=== PATIENT | female | born 1965 | race Caucasian/White ===

== ENCOUNTER 2021-08-01 12:35 | Day surgery (SDC) | payer MEDICAID, SELFPAY ==
--- NOTE | 2021-08-01 08:13 | W.PM.DSUDISC ---
Discharge Plan Disposition Patient Disposition: HOME Condition: Stable Discharge Details Reason For Visit: Trigger Finger Release Attending Provider: Ernst Gonzalez Primary Care Provider: Rachell Balderas Home Meds and New Rx's Prescriptions: New ibuprofen 600 mg tablet 600 mg PO TID Qty: 30 0RF acetaminophen 500 mg capsule 1,000 mg PO Q8H PRN PRNQty: 30 0RF Continued milk thistle 150 mg capsule 150 mg PO DAILY Rx Instructions: give with meal/snack fluoxetine [Prozac] 40 mg capsule 40 mg PO DAILY Qty: 90 3RF methylphenidate HCl 5 mg tablet 5 mg PO QAM MDD 5mg Qty: 28 0RF lisinopril 20 mg tablet 20 mg PO DAILY Qty: 90 3RF hydrochlorothiazide 25 mg tablet 25 mg PO DAILY Qty: 90 3RF vitamin B complex Capsule 1 cap PO DAILY Discharge Instructions Stand Alone Forms: Carlos Swanson Finger Release Referrals: Ernst Gonzalez MD [ [facility] STAFF PHYSICIAN] - Activity:: Activity as Tolerated Remove Dressings/Wound Care:: 72 hours Shower/Bathe:: 72 hours Diet:: As Tolerated Discharge Orders Discharge Orders: Discharge Order (Routine); Ordered 08/01/21 Ordered By: Iris Carolina DS: Diagnosis Discharge Diagnosis (1) Trigger finger, right ring finger: Status: Acute (2) Trigger finger, right middle finger: Status: Acute
[2021-08-01 13:05] VITALS: BP 126/82; PULSE 79; RESP 16; TEMP 36.5; O2SAT 97
[2021-08-01] MEDS: Lidocaine 1% Multi-Dose W/EPI 1/100,000 50 ML VIAL (13:40)
[2021-08-01] MEDS: Sodium Bicarbonate 50 MEQ/50 ML VIAL (13:40)
[2021-08-01 14:01] VITALS: BP 137/77; PULSE 61; RESP 16; TEMP 36.1; O2SAT 97
--- NOTE | 2021-08-01 14:11 | ROE_ITS ---
Date of service: 08/01/21 Time of Service: 13:50 Operative Note Operative Note DATE OF PROCEDURE: 08/01/21 PRE-OP DIAGNOSIS: Right Ring and Middle Finger Trigger Fingers POST-OP DIAGNOSIS: same PROCEDURE: Trigger Finger Release - Right Middle and Ring Fingers SURGEON: Ernst Gonzalez Refer to Anesthesia Record ESTIMATED BLOOD LOSS: 0 PATHOLOGY: none sent COMPLICATIONS: None Patient was transported to: same day Patient's condition: stable Indications: I have seen Kelsie in clinic for symptoms of a trigger finger. The catching, clicking, locking, and pain limited function. The diagnosis of trigger finger was evident of the right middle and ring fingers. The symptoms had not responded to conservative measures. I discussed trigger finger release with the patient. I reviewed the risks of the procedure to include, but not limited to, bleeding, infection, pain, stiffness, incomplete release, damage to nerves or vessels, continued catching, recurrence. Despite these risks, the patient elected to proceed. Findings: There was a tightened A1 camille which was released. The flexor tendons were inspected and the patient was able to move the finger without any catching, clicking, or locking. Procedure Description: Kelsie was greeted in the preoperative holding area where the correct side was identified and marked. The consent was reviewed with the patient and signed. All questions were answered. She was taken back to the operating room. The patient was placed into the supine position on the operating room table with the right arm on an arm board. All bony prominences were well padded. No prophylactic antibiotics were administered since this was a clean, elective hand surgical case. The right arm was then prepped with Chloraprep and draped in a standard fashion with stockinette and extremity drape. A timeout to confirm correct identity, side and site, procedure, allergies, anesthesia, and medical concerns was performed. The surgical site was marked as a longitudinal incision directly over the A1 camille of the middle finger and ring finger. This was confirmed with palpation during finger flexion. This area, overlying the metacarpal head, was then anesthetized with 1% Lidocaine with Epinephrine and buffered with Sodium Bicarbonate. This was repeated for each finger. The patient tolerated this well and once the anesthetic had setup, the procedure began. Starting with the ring finger, a longitudinal incision was made through skin only, approximately 1cm. The deep tissues were dissected bluntly. Once the A1 camille and flexor tendons were identified the soft tissue including neurovascular structures were retracted medially and laterally. There were no crossing structures over the A1 camille. The proximal edge of the camille was identified and the camille was incised with tenotomy scissors. There was a release of the tendons once this was fully released. The tendons were then removed from the wound and inspected. The tendons were then returned and the patient was asked to move the finger into deep flexion and back to extension. There was no recreation of the pre- operative symptoms. The hand was then once more inspected for any A0 camille or area of possible constriction. The wound was then irrigated and the skin was closed with a 4-0 Nylon. Attention was then turned to the middle finger. A longitudinal incision was made through skin only, approximately 1cm. The deep tissues were dissected bluntly. Once the A1 camille and flexor tendons were identified the soft tissue including neurovascular structures were retracted medially and laterally. There were no crossing structures over the A1 camille. The proximal edge of the camille was identified and the camille was incised with tenotomy scissors. There was a release of the tendons once this was fully released. The tendons were then removed from the wound and inspected. Excess synovium was resected. The tendons were then returned and the patient was asked to move the finger into deep flexion and back to extension. There was no recreation of the pre- operative symptoms. The hand was then once more inspected for any A0 camille or area of possible constriction. The wound was then irrigated and the skin was closed with a 4-0 Nylon. These wounds were dressed with gauze and a Conform dressing. She tolerated the procedure well and was returned to the Same Day Surgery area in a stable condition suffering no known complication.
== END 2021-08-01 14:17 | disposition home or self-care (01) ==
PROVIDERS: PCP Nurse Practitioner Family; Visit Provider Student in an Organized Health Care Education/Training Program
PROC: (CPT 26055; principal; 2021-08-01 15:45)
DX: M65.341 Trigger finger, right ring finger (principal); M65.331 Trigger finger, right middle finger
CPT/HCPCS: 26055 ×2

== ENCOUNTER → 2021-08-30 02:16 | Outpatient (CLI) | payer MEDICAID, SELFPAY | PROVIDERS: PCP Nurse Practitioner Family; Visit Provider Nurse Practitioner Family ==

== ENCOUNTER → 2021-11-10 00:49 | Outpatient (CLI) | payer MEDICAID, SELFPAY ==
--- NOTE | 2021-11-10 06:30 | DI.MAMMO_ITS ---
Exam(s) MAMMO SCREENING EXAM: MAMMO SCREENING CLINICAL HISTORY: screening,z12.39. TECHNIQUE: Bilateral full field digital CC and MLO mammographic images were obtained with 3D tomosyn thesis and utilizing computer aided detection (CAD). COMPARISON: None. FINDINGS: There are no significant radiograph findings in right breast. In the left breast there is asymmetric density located 7 cm in from the nipple on the CC view, as wel l as similar distance from the nipple on the MLO view. There are no malignant-appearing microcalcification groups in this region or elsewhere in either [address]. There is no significant architectural distortion nor skin thickening-retraction. IMPRESSION: 1. No radiographic evidence of malignancy in the right breast. 2. Asymmetric density-nodular density in the left breast as described above. Spot compression views and ultrasound recommended. BI-RADS Category 0 - Assessment Incomplete: Need additional imaging evaluation Breast Density - Category B - Scattered areas of fibroglandular density Breast density Category C or D implies that the patient has dense breast tissue. Dense breast tissue can make it harder to find cancer on a mammogram. Dense breast tissue is also associated with an incr eased risk of breast cancer. This information about the result of the mammogram report was provided to the patient to raise their awareness. Use this report when you speak with the patient about their risks for breast cancer, which includes their family history. At that time, you may recommend additional screening tests (Ultrasoun d or MRI) as these tests may add significant information. A negative radiographic report should not delay biopsy if a dominant or clinically suspicious mass is present. Up to ten percent of cancers are not identified on mammography. A negative report may reinforce clinical impression. Adenosis and dense breasts may obscure an underlying neoplasm. False positive reports average 6 to 10%. Patient will receive a letter notifying them of these results.
== END ==
PROVIDERS: PCP Nurse Practitioner Family; Visit Provider Nurse Practitioner Family
DX: Z12.31 Encounter for screening mammogram for malignant neoplasm of breast (principal); R92.8 Other abnormal and inconclusive findings on diagnostic imaging of breast
CPT/HCPCS: 77063; 77067

== ENCOUNTER → 2021-11-17 00:14 | Outpatient (CLI) | payer MEDICAID, SELFPAY ==
--- NOTE | 2021-11-17 10:40 | DI.MAMMO_ITS ---
Exam(s) MAMMO SCREEN CALL BACK UNI EXAM: MAMMO SCREEN CALL BACK UNI CLINICAL HISTORY: F/U ABNL MAMMO, ASYMMETRIC DENSITY 7 CM FROM NIPPLE, LT BREAST TECHNIQUE: Spot compression views and tomographic imaging were performed of the left breast. COMPARISON: 10 November 2021. Patient has had prior mammograms which are not available at this [facility]. FINDINGS: Spot compression views were performed of an area of nodularity in the upper inner, a central left david ast. No persistent abnormality is seen on the additional views performed. The findings are consistent wit h overlying fibroglandular tissue. No suspicious masses or suspicious microcalcifications are seen. IMPRESSION: BI-RADS Category 1, Negative If the patient's prior exams become available, an addendum will be issued. Yearly screening mammography is recommended. Breast Density - Category B, scattered fibroglandular densities.
== END ==
PROVIDERS: PCP Nurse Practitioner Family; Visit Provider Nurse Practitioner Family
DX: R92.8 Other abnormal and inconclusive findings on diagnostic imaging of breast (principal); Z12.31 Encounter for screening mammogram for malignant neoplasm of breast
CPT/HCPCS: 77063; 77067

== ENCOUNTER 2022-05-24 02:17 | Outpatient (CLI) | payer MEDICAID, SELFPAY ==
[2022-05-24 12:30] LABS: Hemoglobin A1C 5.8 % (<5.7)
[2022-05-24 12:40] LABS: Anion Gap 5.8 mmol/L (3-11); BUN 14 mg/dL (7-18); CO2 33.2 mmol/L (21.0-32.0); CREATININE 0.7 mg/dL (0.55-1.02); Calcium 9.2 mg/dL (8.5-10.1); Calculated LDL 152 mg/dL (<100); Chloride 103 mmol/L (98-107); Cholesterol 229 mg/dL (<200); Estimated GFR 100.19 (mL/min/1.73m2); Glucose 104 mg/dL (74-106); HDL Cholesterol 63 mg/dL (40-60); Potassium 4.1 mmol/L (3.5-5.1); Sodium 142 mmol/L (136-145); TSH (W/Ref FT4) 1.36 uIU/mL (0.36-3.74); Triglyceride 71 mg/dL (<150)
== END 2022-05-24 02:18 | disposition home or self-care (01) ==
LOC: LBO 02:18
PROVIDERS: PCP Nurse Practitioner Family; Visit Provider Nurse Practitioner Family
DX: I10 Essential (primary) hypertension (principal); E78.5 Hyperlipidemia, unspecified; R73.09 Other abnormal glucose
CPT/HCPCS: 36415; 80048; 80061; 83036; 84443

== ENCOUNTER 2022-05-30 14:40 | Outpatient (REF) | payer MEDICAID, SELFPAY ==
--- NOTE | 2022-05-30 14:15 | PAPFT_PTH ---
PATIENT: Kelsie Maxwell LOC: IZZY U#:[id number] AGE/SX: 56/F ROOM: RE05/30/[address]: ANA LILIA Bustamante : 1965 BED: DIS: 05/30/2022 SPEC #: [id number] RECD: 05/31/22 13:03 STATUS: JOO REZena #: [id number] AKI: 05/30/22 14:[address]: Rachell Balderas DEPT: [facility] Cytology RECD BY: Christie Garcia Tissues: 1 - CX/ENDOCX FOR PAP SMEARS Procedures: PAP THIN PREP/UVM Screening HPV DNA PROBE Comments: [id number]
== END 2022-05-30 14:41 | disposition home or self-care (01) ==
LOC: LBN 14:40
PROVIDERS: PCP Nurse Practitioner Family; Visit Provider Nurse Practitioner Family
DX: Z12.4 Encounter for screening for malignant neoplasm of cervix (principal); Z11.51 Encounter for screening for human papillomavirus (HPV)
CPT/HCPCS: 88142; 87624

== ENCOUNTER 2022-06-13 11:38 | Outpatient (REF) | payer MEDICAID, SELFPAY ==
--- NOTE | 2022-06-13 11:17 | CER_PTH ---
PATIENT: Kelsie Maxwell LOC: Lam U#:[id number] AGE/SX: 56/F ROOM: RE06/13/[address]: Brit De Paz MD : 1965 BED: DIS: 06/13/2022 SPEC #: [id number] RECD: 06/13/22 12:53 STATUS: JOO REZena #: [id number] KAI: 06/13/22 11:[address]: Brit De Paz DEPT: Surgical Specimen RECD BY: Christie Garcia ENTERED: 06/13/22 12:54 SP TYPE: CER OTHR DR: ANA LILIA Bustamante Tissues: 1 - CERVICAL BIOPSY Procedures: GROSS AND MICRO LEVEL 4 Comments: [id number]
== END 2022-06-13 11:39 | disposition home or self-care (01) ==
LOC: LBN 11:38
PROVIDERS: PCP Nurse Practitioner Family; Visit Provider Obstetrics & Gynecology
DX: N84.1 Polyp of cervix uteri (principal)
CPT/HCPCS: 88305

== ENCOUNTER 2022-09-04 00:26 | Outpatient (CLI) | payer MEDICAID, SELFPAY ==
--- NOTE | 2022-09-04 06:45 | ETT_ITS ---
APPROVED REPORT Exam: Exercise Treadmill Patient Location: Out-Patient Room/Bed: Stress Nurse: Breanna Parr RN Ordering Provider:DOTTY BERGERBetsy, Contact Number: [phone] BMI: 31.92 Baseline Rhythm: Sinus Rhythm Indications: Chronic fatigue Medical History Medical History: Chronic fatigue, bilat sensorineural hearing loss, depressive disorder, ADHD, HLD, H TN, prediabetes Cardiac Medications: Methylphenidate, lisinopril, hydrochlorathiazide, fluoxetine, tylenol Allergies: House dust, environmental Cardiac Risk Factors: Family hx, HTN, HLD, prediabetes, former smoker, obesity Previous Cardiac Procedures: None Pretest Chest Pain Characteristics: None Exercise History: Indeterminate Physical Disabilities: None Lung Sounds: Clear to auscultation Heart Sounds: Regular Stress Test Details Test: Exercise stress testing was performed using a Papito protocol. Rest Stress HR Resting HR Supine: 62 bpm Max Heart Rate (APMHR): 161 bpm Resting HR Standin bpm Target HR (85% APMHR): 137 bpm Max HR Achieved: 162 bpm % of APMHR: 101 Recovery HR: 84 bpm HR response to stress: Normal HR response to stress BP Resting BP Supine: 126/72 mmHg Resting BP Standin/80 mmHg Max BP: 198/92 mmHg Recovery BP: 128/76 mmHg BP response to stress: Normal blood pressure response to stress. ECG Resting ECG: Sinus Rhythm Ectopy: None Stress ECG: Sinus Tachycardia ST Change: Upsloping ST depression Lead(s): inferior leads Stage: 2, [address] Deviation: 2 mm Arrhythmia: PAC Recovery ECG: Sinus Rhythm Recovery ST Change: No significant ST segment changes noted Recovery Arrhythmia: None Comment: ST segment returned to baseline Clinical Reason for Termination: Target HR Achieved, Dyspnea, Fatigue Stress Symptoms: General Fatigue, Mod-severe dyspnea Exercise duration: 09 min19 sec Highest Stage Reached: Stage 3: 3.4 mph at 14% grade. Exercise capacity: 10.66 METs Angina Score: None Eduardo Treadmill Score: 9 Rate Pressure Product: [id number] Stress ECG Conclusion 1. Resting electrocardiogram was within normal limits 2. Patient exercised on the Papito protocol completed a workload of 10.66 METS 3. Normal heart rate and blood pressure response to exercise. The patient achieved greater than 100% of predicted heart rate for age 4. There was no electrocardiographic evidence of myocardial ischemia 5. There were no significant dysrhythmias Eduardo Treadmill Score is 9 which is Low risk. Stress Test Summary STAGE Time (mins) Speed (mph) Grade (%) HR BP SpO2 SYMPTOMS METS Supine 62 126/72 93 Standing 79 120/78 1 3 1.7 10 136 120/70 97 4.5 1 min recovery 136 198/92 97 Mod dyspnea 3 min recovery 94 192/72 97 Mod-severe dyspnea 6 min recovery 86 150/68 96 Dyspnea resolving 9 min recovery 84 128/76 96 All symptoms resolved.
== END 2022-09-04 00:46 ==
LOC: DI 00:26
PROVIDERS: PCP Nurse Practitioner Family; Visit Provider Nurse Practitioner Family
DX: R53.82 Chronic fatigue, unspecified (principal)
CPT/HCPCS: 93017

== ENCOUNTER 2022-09-10 15:32 | Outpatient (CLI) | payer MEDICAID, SELFPAY ==
--- NOTE | 2022-09-10 11:30 | DI.US_ITS ---
APPROVED REPORT EXAM: Comprehensive 2D, Doppler, and color-flow Echocardiogram Patient Location: Out-Patient Visual Communications Instructor: Swati Schwartz RDCS (AE) Indications: Chronic fatigue, HAIR Other Information Study Quality: Adequate Conclusion Normal left ventricular wall thickness and chamber size. Ejection fraction is 60%. Wall motion is n ormal Normal right ventricular size and systolic function Both atria are normal in size There is no structural or hemodynamically significant valvular disease Estimated right ventricular systolic pressure is 18 mmHg Wall motion Left Ventricle The left ventricle is normal size. The left ventricular systolic function is normal. The left ventric ular ejection fraction is within the normal range. There is normal left ventricular wall thickness. T here is normal LV segmental wall motion. There is no ventricular septal defect visualized. LVEF is 60 %. Right Ventricle The right ventricle is normal size. The right ventricular systolic function is normal. The RVSP is 18 .0 mmHg. Atria The left atrium size is normal. The right atrium size is normal. The interatrial septum is intact wit h no evidence for an atrial septal defect. Aortic Valve The aortic valve is normal in structure. Aortic valve is trileaflet. There is no aortic valvular sten osis. Trace aortic regurgitation. Mitral Valve The mitral valve is normal in structure. No evidence of mitral valve stenosis. Trace mitral regurgita tion. Tricuspid Valve The tricuspid valve is normal in structure. There is no tricuspid valve stenosis. Trace tricuspid reg urgitation. Pulmonic Valve The pulmonary valve is normal in structure. There is no pulmonic valvular stenosis. There is no pulmo sanjuanita valvular regurgitation. Great Vessels The aortic root is normal in size. The ascending aorta is mildly dilated. IVC is normal in size and c ollapses >50% with inspiration. Pericardium There is no pericardial effusion. 2D Dimensions IVSD d PLAX 0.81 cm F: 0.6-1.0 LV Vol A2C d MOD 104.8 mL LVPW d PLAX 0.82 cm F: 0.6 - 1.0 LV Vol A4C d MOD 98.5 mL LVID d PLAX 4.81 cm F: 3.8 - 5.2 LA vol/ BSA A2C s A-L 21.7 mL/m2 LVDs 3.25 cm F: 2.2 - 3.5 LA vol/ BSA A4C s A-L 21.3 mL/m2 Ao Root d 2.93 cm F: 2.7 - 3.3 LA Vol/ BSA Biplane s A-L 21.6 mL/m2 RA Area A4C 14.20 cm2 LA Area A4C s MOD 16.75 cm2 RA Vol/ BSA A4C s A-L 16.0 mL/m2 LA Area A2C s MOD 16.85 cm2 Ao Asc Diam d 3.32 cm F: 2.3 - 3.1 LV EF A4C MOD 60.8 % LV EF Teichholz 60.1 % LV EF A2C MOD 60.7 % LVEF (Buckner's) 60.15 % F: 54 - 74 LV EF Biplane MOD 60.1 % LV Volume 76.54 mL F: 46 - 106 SV 62.29 mL LV Volume Index 36.62 mL/m2 F: 29 - 61 SV Index 29.79 mL/m2 LV Vol Biplane MOD 103.6 mL FS 32.00 % M-Mode TAPSE 2.47 cm (M/F) >1.7 LV Diastology MV E' medial 0.109 (>0.07 m/s) E/A Ratio 1.0 LV E/e MED 5.30 (<14) MV E Vmax 0.58 (0.4-1.3 m/s) MV E' lateral 0.101 (>0.1 m/s) MV A Vmax 0.60 (0.4-1.3 m/s) LV E/e LAT 5.70 (<14) MV E/A Ratio 0.94 MV E/E' medial 5.34 MV E/E' lateral 5.72 Aortic Valve LVOT Area 3.88 cm2 AoV Area Vmax 3.26 cm2 LVOT Vmax 1.08 m/s AoV Area/ BSA (Vmax) 1.56 cm2/m2 LVOT Mean Miguel. 0.68 m/s STUART Mean Miguel. 2.92 cm2 LVOT Peak Grad 4.7 mmHg STUART Mean Miguel. Index 1.40 cm2/m2 LVOT Mean Grad 2.2 mmHg LVOT VTI 0.221 m LVOT Diam s 2.20 cm AoV Vmax 1.29 m/s Velocity Ratio 0.84 AoV Mean Miguel. 0.90 m/s AoV Peak Grad 6.7 mmHg LVOT SV 85.90 mL AoV Mean Grad 3.6 mmHg AoV VTI 0.273 m AoV Area VTI 3.15 cm2 AoV Area/ BSA (VTI) 1.51 cm/m2 Mitral Valve MV DT 242 (160-240 msec) MV PHT 70 msec MV Area PHT 3.14 cm2 MV VTI 0.215 m MV Area VTI 3.99 (4.0-6.0 cm2) Pulmonary Valve PV Vmax 0.96 (0.5-1.5 m/s) RVOT Peak Gr. 1.63 mmHg PV Peak Grad 3.7 mmHg RVOT Mean Gr. 0.90 mmHg PV Mean Grad 1.8 mmHg RVOT VTI 0.127 m PV VTI 0.170 m RVOT Vmax 0.64 m/s Tricuspid Valve TR Peak Grad 14.9 mmHg TR Vmax 1.94 m/s RA Pressure 3.00 mmHg RVSP (TR) 18.0 mmHg
== END 2022-09-10 15:52 ==
LOC: DI 15:34
PROVIDERS: PCP Nurse Practitioner Family; Visit Provider Nurse Practitioner Family
DX: R53.82 Chronic fatigue, unspecified (principal); R06.09 Other forms of dyspnea
CPT/HCPCS: 93306

== ENCOUNTER → 2023-01-19 14:15 | Outpatient (REF) | payer MEDICAID, SELFPAY ==
--- NOTE | 2023-01-19 14:30 | DI.RAD_ITS ---
Exam(s) XR CHEST 2V PA LATERAL EXAM: XR CHEST 2V PA LATERAL CLINICAL HISTORY: evaluate pathology TECHNIQUE: 2D digital imaging was performed of the chest. Two images were obtained. PA and lateral views were obtained. COMPARISON: No exams were available for comparison FINDINGS: MEDIASTINUM: Normal. HEART: Normal. PULMONARY VASCULATURE: Normal. LUNGS: Clear. PLEURAL SPACE: No pleural effusion or pneumothorax. BONE:Within normal limits for the patient's age. OTHER FINDINGS:Normal. IMPRESSION: No acute pulmonary findings. DATA REPOSITORY: RADIATION DOSE DELIVERED:
--- NOTE | 2023-01-19 15:07 | DI.VRAD_ITS ---
PROCEDURE INFORMATION: Exam: XR Chest Exam date and time: 01/19/2023 2:35 PM Age: 57 years old Clinical indication: Cough TECHNIQUE: Imaging protocol: Radiologic exam of the chest. Views: 2 views. COMPARISON: No relevant prior studies available. FINDINGS: Lungs: Mild patchy density in the left lung base. Pleural spaces: No pleural effusion. No pneumothorax. Heart/Mediastinum: Unremarkable Bones/joints: Degenerative changes in the thoracic spine. IMPRESSION: Mild patchy density in the left lung base suspicious for pneumonia in the proper clinical setting. Dictated and Authenticated by: Uche Cruz MD. Ordering:SARWAT Mancia MD
== END ==
LOC: DI 14:15
PROVIDERS: PCP Nurse Practitioner Family; Visit Provider Nurse Practitioner Family
DX: J40 Bronchitis, not specified as acute or chronic (principal)
CPT/HCPCS: 71046

== ENCOUNTER → 2023-04-05 10:14 | Outpatient (CLI) | payer MEDICAID, SELFPAY ==
--- NOTE | 2023-04-05 09:15 | DI.RAD_ITS ---
Exam(s) XR CHEST 2V PA LATERAL EXAM: XR CHEST 2V PA LATERAL CLINICAL HISTORY: J41.1 mucopurulent chronic bronchitis, cough. TECHNIQUE: 2D digital imaging was performed. COMPARISON: CR,XR XR CHEST 2V PA LATERAL from 01/19/2023 FINDINGS: 2 views: Heart size is normal. The mediastinum is not widened. Lungs are clear. No infiltrates nor pleural effusions. IMPRESSION: No acute pulmonary findings. DATA REPOSITORY: RADIATION DOSE DELIVERED:
--- OUTSIDE RECORDS SUMMARY | 2023-04-05 10:16 | XMS_ITS | Continuity of Care Document ---
Author Name Unknown Organization [facility] Address [address] [place] [id number] Care Team Providers Care Conductor Orchestra Name Role Phone DOTTY YI NP Primary Care Physician Encounter [facility] NBR [id number] Date(s): 09/11/22 - 09/11/[address] [id number] [phone] Patient Care team information Care Team Personnel Name: DOTTY YI NP Position: No Access Member Role: Primary Care Physician Address: Address: [address] [place] [id number]
== END ==
PROVIDERS: PCP Nurse Practitioner Family; Visit Provider Family Medicine
DX: J41.1 Mucopurulent chronic bronchitis (principal)
CPT/HCPCS: 71046

== ENCOUNTER 2023-04-22 05:32 | Outpatient (CLI) | payer MEDICAID, SELFPAY ==
[2023-04-22] MEDS: Inhaler, Assist Device 1 EACH MC (11:02)
[2023-04-22] MEDS: Levalbuterol HFA 15 GM INH 4 PUFF IH (11:02)
--- NOTE | 2023-04-23 11:57 | W.PFT ---
Date of service: 04/22/23 Time of Service: 10:04 Pulmonary Function Test Result Indications: Cough Interpretation Spirometry: There is no airflow limitation. No bronchodilator response. Lung Volumes: Normal lung volumes Diffusion Capacity: Normal diffusion Airway Pressure: Normal airways resistance Impression Normal pulmonary function testing Clinical Correlation therefore is recommended.
== END 2023-04-22 05:33 | disposition home or self-care (01) ==
LOC: RT 05:32
PROVIDERS: PCP Nurse Practitioner Family; Visit Provider Family Medicine
DX: R05.9 Cough, unspecified (principal)
CPT/HCPCS: 94060; 94726; 94729

== ENCOUNTER 2023-07-17 05:03 | Outpatient (CLI) | payer MEDICAID, SELFPAY ==
[2023-07-17 13:17] LABS: Abs Immature Grans 0.03 10^3/uL (0.0-0.06); Absolute Basophil Count 0.06 10^3/uL (0.0-0.2); Absolute Eosinophil Count 0.63 10^3/uL (0.0-0.7); Absolute Lymphocyte Count 2.28 10^3/uL (1.2-3.4); Absolute Monocyte Count 0.63 10^3/uL (0.1-0.8); Absolute Neutrophil Count 3.88 10^3/uL (1.2-6.7); Basophils % 0.8 %; Eosinophils % 8.4 %; HCT 47.1 % (36.0-46.0); Immature Grans % 0.4 %; Lymphocytes % 30.4 %; MCH 30.4 pg (27.0-33.0); MCV 90 fL (80-95); MPV 8.8 fL (8.0-11.0); Monocytes % 8.4 %; Neutrophils % 51.6 %; Platelet Count 446 10^3/uL (130-400); RBC 5.26 10^6/uL (3.93-5.22); RDW-SD 42.5 fL; WBC 7.51 10^3/uL (4.4-10.8)
[2023-07-17 14:09] LABS: ALT 20 U/L (14-59); AST 22 U/L (15-37); Albumin 3.6 g/dL (3.4-5.0); Alkaline Phosphatase 123 U/L (46-116); Anion Gap 10.7 mmol/L (3-11); BUN 16 mg/dL (7-18); Bilirubin, Total 0.7 mg/dL (0.2-1.0); CO2 27.3 mmol/L (21.0-32.0); CREATININE 0.8 mg/dL (0.55-1.02); Calcium 9.5 mg/dL (8.5-10.1); Calculated LDL 166 mg/dL (<100); Chloride 104 mmol/L (98-107); Cholesterol 232 mg/dL (<200); Glucose 96 mg/dL (74-106); HDL Cholesterol 50 mg/dL (40-60); Potassium 3.8 mmol/L (3.5-5.1); Sodium 142 mmol/L (136-145); Total Protein 7.9 g/dL (6.4-8.2); Triglyceride 84 mg/dL (<150)
[2023-07-17 14:34] LABS: Hemoglobin A1C 5.9 % (<5.7)
[2023-07-18 09:37] LABS: Hepatitis C Ab w Rflx HCV PCR Negative (Negative)
[2023-07-19 19:12] LABS: Lab Add On Test DONE
[2023-07-22 09:35] LABS: HBs Antibody, Quant <3.1 mIU/mL (See Note); Hepatitis B Surface Ab Negative (See Note)
== END 2023-07-17 05:04 | disposition home or self-care (01) ==
PROVIDERS: PCP Nurse Practitioner Family; Visit Provider Nurse Practitioner Family
DX: J41.1 Mucopurulent chronic bronchitis (principal); R53.82 Chronic fatigue, unspecified; R73.03 Prediabetes
CPT/HCPCS: 36415; 80053; 80061; 86803; 83036; 85025

== ENCOUNTER 2023-07-19 02:40 | Outpatient (CLI) | payer MEDICAID, SELFPAY | END 2023-07-19 02:41 | disposition home or self-care (01) | LOC: LBO 02:40 | PROVIDERS: PCP Nurse Practitioner Family; Visit Provider Nurse Practitioner Family | DX: F10.10 Alcohol abuse, uncomplicated (principal); Z01.84 Encounter for antibody response examination | CPT/HCPCS: 86706 ==

== ENCOUNTER 2023-08-01 14:55 | Outpatient (CLI) | payer MEDICAID, SELFPAY ==
[2023-08-01 13:29] LABS: Abs Immature Grans 0.02 10^3/uL (0.0-0.06); Absolute Basophil Count 0.06 10^3/uL (0.0-0.2); Absolute Eosinophil Count 0.61 10^3/uL (0.0-0.7); Absolute Lymphocyte Count 2.51 10^3/uL (1.2-3.4); Absolute Monocyte Count 0.73 10^3/uL (0.1-0.8); Absolute Neutrophil Count 3.42 10^3/uL (1.2-6.7); Basophils % 0.8 %; Eosinophils % 8.3 %; HCT 45.7 % (36.0-46.0); HGB 15.6 g/dL (11.2-15.7); Immature Grans % 0.3 %; Lymphocytes % 34.1 %; MCH 30.2 pg (27.0-33.0); MCHC 34.1 % (32.0-36.0); MCV 89 fL (80-95); MPV 8.5 fL (8.0-11.0); Monocytes % 9.9 %; Neutrophils % 46.6 %; Platelet Count 373 10^3/uL (130-400); RBC 5.16 10^6/uL (3.93-5.22); RDW 12.3 % (11.7-14.6); RDW-SD 40.5 fL; WBC 7.35 10^3/uL (4.4-10.8)
== END 2023-08-01 14:56 | disposition home or self-care (01) ==
LOC: LBO 14:55
PROVIDERS: PCP Nurse Practitioner Family; Visit Provider Nurse Practitioner Family
DX: Z00.00 Encounter for general adult medical examination without abnormal findings (principal)
CPT/HCPCS: 36415; 85025

== ENCOUNTER → 2023-08-22 00:47 | Outpatient (CLI) | payer MEDICAID, SELFPAY ==
--- NOTE | 2023-08-22 06:30 | DI.CT_ITS ---
Exam(s) CT CHEST WO EXAM: CT CHEST WO CLINICAL HISTORY: CHRONIC COUGH, R05.3. TECHNIQUE: Imaging protocol: Axial computed tomography images were obtained and coronal and sagittal reformatted images were created and reviewed. COMPARISON: CR,XR XR CHEST 2V PA LATERAL from 01/19/2023 CR XR CHEST 2V PA LATERAL from 04/05/[address] CHEST WO from 08/22/2023 FINDINGS: Tracheobronchial tree: Patent where visualized. Pulmonary parenchyma: There are few small pleural based nodules present. There are noncalcified. Th e largest is in the right lateral lower lobe and measures 5 mm. (Series 3, image 377). There is a 3 mm nodule in the right upper lobe (series 3, image 80). There are diffuse ground-glass opacities in the lungs. No focal consolidating infiltrate is seen. Mediastinum and Jade: Mildly enlarged mediastinal lymph nodes are seen. There is a 1.7 x 1.2 pretrac heal lymph node (series 3, image 218). Subcarinal adenopathy is present measuring 1.9 x 1 cm (series 3, image 264). The esophagus is unremarkable. Thyroid gland: Unremarkable. Pleura: No effusion or pneumothorax. Heart: The heart is not dilated. No coronary artery calcifications are seen. No pericardial effusion. Aorta: Thoracic aorta non-dilated. Mild atherosclerotic calcification is present. Upper abdomen: Multiple hepatic cysts are seen. The largest is in the left lobe and measures 4.3 x 5.2 cm. (Series 3, image 544). Lymph nodes: No significant axillary or supraclavicular adenopathy. Soft tissues: Unremarkable. Bones:Within normal limits for the patient's age. There is a sclerotic focus in the humeral head whi ch may represent a bone island. Comparison x-ray is recommended. IMPRESSION: 1. Diffuse ground-glass opacities in the lungs. Differential considerations include pulmonary edema or hemorrhage, pneumonia including atypical pathogens, interstitial pneumonitis, hypersensitivity pne umonitis or organizing pneumonia. 2. Pulmonary nodules. Solid nodules smaller than 6 mm do not require routine follow-up in all patients with high clinical r isk; however, some nodules smaller than 6 mm with suspicious morphology, upper lobe location, or both may warrant follow-up at 12 months (grade 2A; weak recommendation, high-quality evidence). (Roberto et al., 2017) Single solid noncalcified nodules. ???Solid nodules smaller than 6 mm (those 5 mm or smaller) do not require routine follow-up in patients at low risk (grade 1C; strong recommendation, low- or very-low- quality evidence). (Roberto et al., 2017) 3. Mildly enlarged mediastinal lymph nodes. 4. Hepatic cysts. The largest measures 4.3 x 5.2 cm. Unexpected findings RADIATION DOSE DELIVERED: 504.71mGy.cm Total DLP 504.71mGy.cm Total DLP DATA REPOSITORY: All CT scans at this facility are submitted to the National Radiology Data Registry (NRDR) Dose Index Registry (DIR) with the [employer] (A[employer]). RADIATION OPTIMIZATION: All CT scans at this facility use at least one of these dose optimization te chniques: automated exposure control; mA and/or kV adjustment per patient size (includes targeted exa ms where dose is matched to clinical indication); or iterative reconstruction.
== END ==
PROVIDERS: PCP Nurse Practitioner Family; Visit Provider Nurse Practitioner Family
DX: R05.3 Chronic cough (principal)
CPT/HCPCS: 71250

== ENCOUNTER → 2023-08-23 12:23 | Outpatient (CLI) | payer MEDICAID, SELFPAY ==
--- NOTE | 2023-08-23 | DI.CT_ITS ---
Exam(s) CT CHEST WO EXAM: CT CHEST WO CLINICAL HISTORY: CHRONIC COUGH, R05.3. TECHNIQUE: Imaging protocol: Axial computed tomography images were obtained and coronal and sagittal reformatted images were created and reviewed. COMPARISON: CR,XR XR CHEST 2V PA LATERAL from 01/19/2023 CR XR CHEST 2V PA LATERAL from 04/05/[address] CHEST WO from 08/22/2023 FINDINGS: Tracheobronchial tree: Patent where visualized. Pulmonary parenchyma: There are few small pleural based nodules present. There are noncalcified. Th e largest is in the right lateral lower lobe and measures 5 mm. (Series 3, image 377). There is a 3 mm nodule in the right upper lobe (series 3, image 80). There are diffuse ground-glass opacities in the lungs. No focal consolidating infiltrate is seen. Mediastinum and Jade: Mildly enlarged mediastinal lymph nodes are seen. There is a 1.7 x 1.2 pretrac heal lymph node (series 3, image 218). Subcarinal adenopathy is present measuring 1.9 x 1 cm (series 3, image 264). The esophagus is unremarkable. Thyroid gland: Unremarkable. Pleura: No effusion or pneumothorax. Heart: The heart is not dilated. No coronary artery calcifications are seen. No pericardial effusion. Aorta: Thoracic aorta non-dilated. Mild atherosclerotic calcification is present. Upper abdomen: Multiple hepatic cysts are seen. The largest is in the left lobe and measures 4.3 x 5.2 cm. (Series 3, image 544). Lymph nodes: No significant axillary or supraclavicular adenopathy. Soft tissues: Unremarkable. Bones:Within normal limits for the patient's age. There is a sclerotic focus in the humeral head whi ch may represent a bone island. Comparison x-ray is recommended. IMPRESSION: 1. Diffuse ground-glass opacities in the lungs. Differential considerations include pulmonary edema or hemorrhage, pneumonia including atypical pathogens, interstitial pneumonitis, hypersensitivity pne umonitis or organizing pneumonia. 2. Pulmonary nodules. Solid nodules smaller than 6 mm do not require routine follow-up in all patients with high clinical r isk; however, some nodules smaller than 6 mm with suspicious morphology, upper lobe location, or both may warrant follow-up at 12 months (grade 2A; weak recommendation, high-quality evidence). (Roberto et al., 2017) Single solid noncalcified nodules. ???Solid nodules smaller than 6 mm (those 5 mm or smaller) do not require routine follow-up in patients at low risk (grade 1C; strong recommendation, low- or very-low- quality evidence). (Roberto et al., 2017) 3. Mildly enlarged mediastinal lymph nodes. 4. Hepatic cysts. The largest measures 4.3 x 5.2 cm. Unexpected findings RADIATION DOSE DELIVERED: 504.71mGy.cm Total DLP 504.71mGy.cm Total DLP DATA REPOSITORY: All CT scans at this facility are submitted to the National Radiology Data Registry (NRDR) Dose Index Registry (DIR) with the [employer] ([employer]). RADIATION OPTIMIZATION: All CT scans at this facility use at least one of these dose optimization te chniques: automated exposure control; mA and/or kV adjustment per patient size (includes targeted exa ms where dose is matched to clinical indication); or iterative reconstruction.
== END ==
PROVIDERS: PCP Nurse Practitioner Family; Visit Provider Nurse Practitioner Family
DX: R05.3 Chronic cough (principal)
CPT/HCPCS: 71250

== ENCOUNTER 2023-12-23 02:11 | Outpatient (CLI) | payer OTHER, SELFPAY ==
[2024-01-02 12:22] LABS: Cockatiel Negative (Negative); Parakeet Negative (Negative); Parrot Negative (Negative); Pigeon Sera Negative (Negative)
== END 2023-12-23 02:12 | disposition home or self-care (01) ==
PROVIDERS: PCP Nurse Practitioner Family; Visit Provider Student in an Organized Health Care Education/Training Program
DX: J67.9 Hypersensitivity pneumonitis due to unspecified organic dust (principal)
CPT/HCPCS: 36415; 86331

== ENCOUNTER 2023-12-30 03:03 | Outpatient (CLI) | payer OTHER, SELFPAY ==
[2024-01-06 08:51] LABS: Alter tenuis/alternata IgG 7.8 mcg/mL (<12.0); Aspergillus fumigatus IgG 7.3 mcg/mL (<46.0); Aureobasidium pullulans IgG 5.5 mcg/mL (<18.0); Laceyella sacchari IgG 2.4 mcg/mL (<25.0); Micropolyspora faeni IgG <2.0 mcg/mL (<5.0); Penicillium Chrysogenum IgG 10.6 mcg/mL (<22.0); Phoma betae IgG 2.8 mcg/mL (<8.0)
== END 2023-12-30 03:04 | disposition home or self-care (01) ==
PROVIDERS: PCP Nurse Practitioner Family; Visit Provider Student in an Organized Health Care Education/Training Program
DX: J67.9 Hypersensitivity pneumonitis due to unspecified organic dust (principal)
CPT/HCPCS: 36415; 86001

== ENCOUNTER 2024-07-29 02:43 | Outpatient (CLI) | payer OTHER, SELFPAY ==
[2024-07-29 09:15] LABS: Abs Immature Grans 0.02 10^3/uL (0.0-0.06); Absolute Basophil Count 0.05 10^3/uL (0.0-0.2); Absolute Eosinophil Count 0.55 10^3/uL (0.0-0.7); Absolute Lymphocyte Count 1.64 10^3/uL (1.2-3.4); Absolute Monocyte Count 0.57 10^3/uL (0.1-0.8); Absolute Neutrophil Count 3.41 10^3/uL (1.2-6.7); Basophils % 0.8 %; Eosinophils % 8.8 %; HCT 43.3 % (36.0-46.0); HGB 14.8 g/dL (11.2-15.7); Immature Grans % 0.3 %; Lymphocytes % 26.3 %; MCH 30.5 pg (27.0-33.0); MCHC 34.2 % (32.0-36.0); MCV 89 fL (80-95); MPV 8.6 fL (8.0-11.0); Monocytes % 9.1 %; Neutrophils % 54.7 %; Platelet Count 316 10^3/uL (130-400); RBC 4.85 10^6/uL (3.93-5.22); RDW 12.1 % (11.7-14.6); WBC 6.24 10^3/uL (4.4-10.8)
[2024-07-29 09:45] LABS: ALT 19 U/L (14-59); AST 22 U/L (15-37); Albumin 3.3 g/dL (3.4-5.0); Alkaline Phosphatase 96 U/L (46-116); Anion Gap 7.6 mmol/L (3-11); BUN 18 mg/dL (7-18); Bilirubin, Total 0.6 mg/dL (0.2-1.0); CO2 28.4 mmol/L (21.0-32.0); CREATININE 0.8 mg/dL (0.55-1.02); Calcium 8.8 mg/dL (8.5-10.1); Chloride 104 mmol/L (98-107); Estimated GFR 83.78 (mL/min/1.73m2); Glucose 103 mg/dL (74-106); Potassium 3.7 mmol/L (3.5-5.1); Sodium 140 mmol/L (136-145)
[2024-07-29 09:53] LABS: Hemoglobin A1C 5.8 % (<5.7)
== END 2024-07-29 02:44 | disposition home or self-care (01) ==
PROVIDERS: PCP Nurse Practitioner Family; Referring Provider Nurse Practitioner Family; Visit Provider Internal Medicine Critical Care Medicine
DX: J67.9 Hypersensitivity pneumonitis due to unspecified organic dust (principal)
CPT/HCPCS: 36415; 80053; 83036; 85025